=== PATIENT | male | born 2000 | race Caucasian/White ===

== ENCOUNTER 2024-03-13 20:37 | Emergency (ER) | payer BC, SELFPAY ==
[2024-03-13 21:00] VITALS: BP 142/80; PULSE 103; RESP 19; TEMP 36.8; O2SAT 100
[2024-03-13] MEDS: diazePAM INJ (*CRX) 10 MG/2 ML SYRINGE 5 MG IM (21:44)
[2024-03-13] MEDS: KETOROLAC 30 MG/ML VIAL (*BKC) 15 MG IM (22:08)
[2024-03-13 22:43] VITALS: BP 132/84; PULSE 96; RESP 15; O2SAT 100
--- NOTE | 2024-03-14 00:10 | ED.BACK ---
HPI - Back Pain/Injury General Chief Complaint: Back Pain/Injury Stated Complaint: right upper back/neck pain Time Seen by Provider: 03/13/24 21:39 History of Present Illness HPI Narrative: Patient this morning was having some discomfort to his right neck, and has been worsening and he feels very stiff and pain worsens when he tries to turn his neck. No focal numbness or weakness. No difficulty walking or speaking. No history of aneurysm Related Data Allergies Allergy/AdvReac Type Severity Reaction Status Date / Time TREE NUTS Allergy Severe Anaphylaxis Uncoded 03/13/24 21:41 Review of Systems Review of Systems: All systems reviewed & are unremarkable except as noted in HPI and below Exam Narrative: EXAMINATION OF ORGAN SYSTEMS/BODY AREAS: Constitutional: Vital signs per nursing GENERAL: Holding neck very stiffly, appears uncomfortable HEAD: Normal with no signs of head trauma. EYES: EOMI, conjunctiva normal, PERRL ENT: No cardiac bruit LUNGS: Nonlabored breathing. HEART: [Regular rate and rhythm] ABD: No distension EXT: Normal range of motion SKIN: [No rashes or lesions.] NEURO: [Alert and oriented x 3. No focal sensory or strength deficits.] Normal speech. Normal gait. No facial asymmetry. PSYCH: Normal affect Course Vital Signs Vital signs: Vital Signs Temperature 98.2 F 03/13/24 21:00 Pulse Rate 103 H 03/13/24 21:00 Respiratory Rate 19 03/13/24 21:00 Blood Pressure 142/80 H 03/13/24 21:00 Pulse Oximetry 100 03/13/24 21:00 Oxygen Delivery Room Air 03/13/24 21:00 Temperature 98.2 F 03/13/24 21:00 Pulse Rate 96 03/13/24 22:43 Respiratory Rate 15 03/13/24 22:43 Blood Pressure 132/84 03/13/24 22:43 Pulse Oximetry 100 03/13/24 22:43 Oxygen Delivery Room Air 03/13/24 21:00 MDM - Back Pain/Injury MDM Narrative Medical decision making narrative: 23-year-old male presents with with feels like a neck spasm on the right side, he has no focal neurologic deficits it does hurt to turn his neck, has tried taking ibuprofen at home. On exam he appears uncomfortable and stiff, with some tenderness to the right side of his neck, no bruit, he has no history of dissections, no recent injury no focal neurologic deficits, I have very low concern for dissection. He is given a muscle relaxant and Toradol, and on re-evaluation he looks much more comfortable, he is now able to move around and turn his neck. Agreeable to outpatient management and follow-up with return precautions. Prescriptions for muscle relaxant prescribed Discharge Plan Discharge Clinical Impression: Acute neck sprain Patient Disposition: Home, Self-Care Condition: Stable Instructions: Antibiotic Form, Cervical Sprain (ED) Additional Instructions: Please follow-up with the primary care doctor. You can take the medications as prescribed, and come back if you feel worse especially if you have any new numbness or weakness or tingling. Prescriptions: New methocarbamol 750 mg tablet 750 mg PO TID PRN (Reason: muscle spasm) Qty: 30 0RF lidocaine 5 % adhesive patch,medicated 1 patch topical DAILY Qty: 15 0RF Rx Instructions: leave on most painful area for up to 12 hrs Follow-up/Referrals: Patrick,Moses De APRN [Primary Care Provider] - Jesus Box MD [Physician] - 2 Days
== END 2024-03-13 22:46 | disposition home or self-care (01) ==
PROVIDERS: Emergency Provider Emergency Medicine; PCP Nurse Practitioner Family
DX: S13.9XXA Sprain of joints and ligaments of unspecified parts of neck, initial encounter (principal); X58.XXXA Exposure to other specified factors, initial encounter
CPT/HCPCS: 96372; 99284; J1885; J3360